=== PATIENT | male | born 1955 | race Caucasian/White ===

== ENCOUNTER 2021-08-28 09:55 | Outpatient (CLI) | payer MEDICARE, SELFPAY ==
--- NOTE | ~2021-08-28 | US_ITS ---
EXAMINATION: US aorta [facility] DATE: 08/28/2021 10:30 INDICATION: Abdominal aortic aneurysm screening with risk factors of hypercholesterolemia and prior s moking. TECHNIQUE: Grayscale, color Doppler, and pulsed Doppler images of the aorta and common iliac arteries were obtained. COMPARISON: None. FINDINGS: The proximal aorta measures 2.0 cm. The mid aorta measures 2.1 cm. The distal aorta measures 1.9 cm. Biphasic, potentially triphasic waveforms with brisk systolic upstrokes in the aorta on color Doppler . No evident atherosclerotic plaque. The right common iliac artery measures 1.1 cm. The left common i liac artery measures 1.0 cm. IMPRESSION: 1. Normal abdominal aorta. Reviewed, dictated and finalized at location B. IMPRESSION: 1. Normal abdominal aorta.
== END 2021-08-28 09:56 | disposition home or self-care (01) ==
PROVIDERS: PCP Family Medicine; Visit Provider Nurse Practitioner Family
DX: Z13.6 Encounter for screening for cardiovascular disorders (principal)
CPT/HCPCS: 76706

== ENCOUNTER 2021-10-03 00:02 | Day surgery (SDC) | payer MEDICARE, SELFPAY ==
[2021-09-14 14:58] VITALS: BMI 24.4
[2021-10-03 06:50] VITALS: BP 133/89; PULSE 75; RESP 20; TEMP 36.2; O2SAT 99
[2021-10-03] MEDS: LACTATED RINGERS 1,000 ML 150 ML IV CONT (07:18)
--- NOTE | 2021-10-03 07:41 | WPDANESEPPF ---
Anes - Initial Pre Proc Eval Procedure: Operation Date: 10/03/21 08:15 Proposed Procedures p Screening Colonoscopy - José Manuel Matson MD Date/Time: 10/03/21 07:41 Surgeon: José Manuel Matson MD Pre Op Diagnosis: hx of colon polyps Patient Data Age: 66 Gender: M Height: 1.8 m Weight: 77.5 kg Last Vital Signs Temp 97.2 F L 10/03/21 06:50 Pulse 75 10/03/21 06:50 Resp 20 10/03/21 06:50 BP 133/89 10/03/21 06:50 Pulse Ox 99 10/03/21 06:50 Allergies Allergy/AdvReac Type Severity Reaction Status Date / Time No Known Allergies Allergy Verified 10/03/21 06:49 Home Medications Medication Instructions Recorded Confirmed Type sildenafil 100 mg tablet 100 mg PO DAILY PRN #10 tablet 03/27/21 09/14/21 Rx finasteride 5 mg tablet 5 mg PO DAILY #90 tablet 08/30/21 09/14/21 Rx rosuvastatin 10 mg tablet 10 mg PO DAILY #90 tablet 09/09/21 09/14/21 Rx Patient hx anesthesia problems: none Family hx anesthesia problems: none Results Review: All pre-operative results and documents have been reviewed as part of the pre-operative evaluation. [facility] Past Medical History Medical History (Updated 08/14/21 @ 21:27 by Verónica Cat NP) BPH (benign prostatic hyperplasia) COVID-19 Dermatitis Erectile dysfunction Hemorrhoids Mixed hyperlipidemia Verruca(e) Surgical History Surgical History H/O left inguinal hernia repair Repair of left indirect inguinal hernia with mesh - 09/17/2008 H/O right inguinal hernia repair Repair of right indirect inguinal hernia with mesh - 04/13/2015 H/O umbilical hernia repair without mesh - 08/27/2000 History of colonoscopy History of incisional hernia repair Repair of ventral/incisional hernia with 6.4x6.4 circular straps and Proceed mesh - 07/25/2011 S/P repair of recurrent ventral hernia Repair of recurrent ventral/incisional hernia with mesh utilizing bilateral component separation with 10cm x 15cm Proceed mesh - 01/12/2015 Family History Family History Mother Hypertension Sibling Family history of malignant neoplasm of bone Ruptured abdominal aortic aneurysm (AAA) Father Family history of coronary artery disease Social History Social History Years smoked: 3 Smoking status: Former smoker Tobacco type: cigarettes Additional smoking assessment comments: Smoked 40 years ago Alcohol intake: current Drinks per week: 8 Substance use: never Substance use type: does not use Living arrangements: alone Spiritual care concerns: No Anes - Eval Final PreProcedure Day of Procedure 10/03/21 07:41 Patient weight: normal Heart: regular rate and rhythm Lungs: clear to auscultation Airway: Mallampati scale class II Neurological: alert and oriented Last oral intake: >/= 8 hours ASA classification: II Emergent: no Anesthetic plan: proceed Anesthesia type and monitoring: general GIVS and standard monitoring Results Review: All pre-operative results and documents have been reviewed as part of the pre-operative evaluation. Informed Consent: The patient's anesthetic plan and its attendant risks and benefits were discussed with the patient/family/POA. Questions were solicited and answers provided to the satisfaction of the patient/family/POA.
--- NOTE | 2021-10-03 08:02 | PM.HPGS ---
History of Present Illness History of Present Illness Consent: Risks, benefits, and alternatives have been discussed and questions answered. Patient agrees to proceed with procedure. Chief complaint: hx of colon polyps Narrative: Will Jay is a 66 year old male with colon polyp in 2019 Review of Systems Constitutional: Constitutional: Denies headache(s) and Denies weakness Eyes: Eyes: Denies blurry vision ENT: Reports Normal hearing present, Denies headache(s) and Denies neck pain Cardiovascular: Cardiovascular: Denies chest pain and Denies dyspnea Respiratory: Respiratory: Denies dyspnea Gastrointestinal: Gastrointestinal: Reports no additional gastrointestinal complaints Genitourinary: Genitourinary: Denies dysuria Musculoskeletal: Musculoskeletal: Denies neck pain Integumentary/Breasts: Skin/Breast: Denies dry skin Neurologic: Reports Normal hearing present, Denies headache(s) and Denies weakness Psychiatric: Psychiatric: Denies anxiety Endocrine: Endocrine: Denies change in body appearance Hematologic/Lymphatic: Hematologic/Lymphatic: Denies easy bleeding Allergic/Immunologic: Allergic/Immunologic: Denies urticaria PMFSH Past Medical History Medical History (Updated 08/14/21 @ 21:27 by Verónica Cat NP) BPH (benign prostatic hyperplasia) COVID-19 Dermatitis Erectile dysfunction Hemorrhoids Mixed hyperlipidemia Verruca(e) Surgical History Surgical History H/O left inguinal hernia repair Repair of left indirect inguinal hernia with mesh - 09/17/2008 H/O right inguinal hernia repair Repair of right indirect inguinal hernia with mesh - 04/13/2015 H/O umbilical hernia repair without mesh - 08/27/2000 History of colonoscopy History of incisional hernia repair Repair of ventral/incisional hernia with 6.4x6.4 circular straps and Proceed mesh - 07/25/2011 S/P repair of recurrent ventral hernia Repair of recurrent ventral/incisional hernia with mesh utilizing bilateral component separation with 10cm x 15cm Proceed mesh - 01/12/2015 Family History Family History Mother Hypertension Sibling Family history of malignant neoplasm of bone Ruptured abdominal aortic aneurysm (AAA) Father Family history of coronary artery disease Social History Social History Years smoked: 3 Smoking status: Former smoker Tobacco type: cigarettes Additional smoking assessment comments: Smoked 40 years ago Alcohol intake: current Drinks per week: 8 Substance use: never Substance use type: does not use Living arrangements: alone Spiritual care concerns: No Meds Home Medications and Allergies Home Medications Medication Instructions Recorded Confirmed Type sildenafil 100 mg tablet 100 mg PO DAILY PRN #10 tablet 03/27/21 09/14/21 Rx finasteride 5 mg tablet 5 mg PO DAILY #90 tablet 08/30/21 09/14/21 Rx rosuvastatin 10 mg tablet 10 mg PO DAILY #90 tablet 09/09/21 09/14/21 Rx Allergies Allergy/AdvReac Type Severity Reaction Status Date / Time No Known Allergies Allergy Verified 10/03/21 06:49 Vital Signs Vital Signs - 24 hr 10/03/21 06:50 Temperature 97.2 F L Pulse Rate 75 Respiratory Rate 20 Blood Pressure 133/89 Pulse Oximetry 99 Exam Const: General: comfortable and no acute distress HENMT: General nose exam: Normal nares present Eyes: General: appearance normal, both eyes and all related structures Neck: Neck: no JVD Resp: Auscultation: clear to auscultation bilaterally Cardio: Rate: regular rate Rhythm: regular rhythm GI: Inspection: non-distended GI Palp: Yes Soft to palpation Skin: General skin exam: normal color Neuro: General: gait normal Speech: normal speech Extrem: General: normal to inspection Psych: Mental Status: mental status grossly normal Assessm
[2021-10-03 08:20] VITALS: BP 99/67; PULSE 64; RESP 13; O2SAT 98
[2021-10-03 08:30] VITALS: BP 126/81; PULSE 60; RESP 14; O2SAT 98
[2021-10-03 08:41] VITALS: BP 126/86; PULSE 60; RESP 17; O2SAT 100
== END 2021-10-03 08:54 | disposition home or self-care (01) ==
PROVIDERS: PCP Family Medicine; Visit Provider Internal Medicine Gastroenterology
PROC: 0DJD8ZZ Inspection of Lower Intestinal Tract, Via Natural or Artificial Opening Endoscopic (ICD-10-PCS; CPT 45378; principal; 2021-10-03 08:15)
DX: Z12.11 Encounter for screening for malignant neoplasm of colon (principal); K63.5 Polyp of colon; K64.8 Other hemorrhoids; K57.30 Diverticulosis of large intestine without perforation or abscess without bleeding; N40.0 Benign prostatic hyperplasia without lower urinary tract symptoms; L30.9 Dermatitis, unspecified; E78.2 Mixed hyperlipidemia; Z86.16 Personal history of COVID-19; Z87.891 Personal history of nicotine dependence
CPT/HCPCS: 45385; 88305; J2001; J2704; J7120

== ENCOUNTER 2024-09-08 15:53 | Outpatient (CLI) | payer MEDICARE, SELFPAY ==
--- NOTE | ~2024-09-08 | CT_ITS ---
Non-contrast CT scan of the Abdomen and Pelvis Clinical indication: Incisional hernia Technique: 2.5 mm axial scans were obtained through the abdomen and pelvis without intravenous or or al contrast. Dose reduction technique was used on this scan by utilizing automated exposure control a nd iterative reconstruction technique. The dose-length product (DLP) was 263.79 mGy-cm. Findings: Images through the lung bases reveal no abnormalities. There is no evidence of renal or ureteral calculi. The kidneys and the ureters are nondilated. The liver, spleen, pancreas, gallbladder, and adrenals appear normal. There is no aortic aneurysm. T here is elevation of the left hemidiaphragm. There is no evidence of bowel obstruction. Moderate ventral fat-containing hernia present, neck left of midline (axial image 101). Images through the pelvis were performed. There is no evidence of ascites or lymphadenopathy. Urinary bladder unremarkable. Prostate gland enlarged. Impression: Moderate ventral fat-containing hernia with neck left of midline, as detailed above. Enlarged prostate gland. Elevated left hemidiaphragm. Reviewed, dictated and finalized at location . Impression: Moderate ventral fat-containing hernia with neck left of midline, as detailed a nereyda. Enlarged prostate gland. Elevated left hemidiaphragm.
--- OUTSIDE RECORDS SUMMARY | 2024-09-08 16:46 | XMS_ITS | Clinical Summary ---
Author Organization [facility] Address [address] [place] [address] Care Team Providers Care Analysis Lead Name Role Phone Syd Wright MD Primary Care Provider [phone] Allergies No known active allergies Medications No known medications Active Problems Problem Noted Date Diagnosed Date Leukopenia 07/19/2017 Family History Medical History Relation Name Comments Cancer Brother 1 Diabetes Brother 2 Heart Disease Brother 2 Diabetes Brother 3 Heart Disease Brother 3 Diabetes Brother 4 Heart Disease Brother 4 Heart Disease Father Diabetes Mother No Known Problems Sister 1 Diabetes Sister 2 Diabetes Sister 3 No Known Problems Sister 4 Diabetes Sister 5 Diabetes Sister 6 Relation Name Status Comments Brother 1 Brother 2 Alive Brother 3 Alive Brother 4 Alive Father Mother Sister 1 Alive Sister 2 Alive Sister 3 Alive Sister 4 Alive Sister 5 Alive Sister 6 Alive Social History Tobacco Use Types Packs/Day Years Used Date Smoking Tobacco: Former Cigarettes 0.3 4 1 979 - 1983 Alcohol Use Standard Drinks/Week Comments Yes 0 (1 standard drink = 0.6 oz pur e alcohol) occasional Sex and Gender Information Value Date Recorded Sex Assigned at Not on file Legal Sex Male 9:40 AM CLIENT SERVICE COORDINATOR Gender Identity Not on file Sexual Orientation Not on file Last Filed Vital Signs Vital Sign Reading Time Taken Comments Blood Pressure 160/96 07/26/2017 9:24 AM CLIENT SERVICE COORDINATOR Pulse 92 07/26/2017 9:24 AM CLIENT SERVICE COORDINATOR Temperature 36.8 C (98.2 F) 07/26/2017 9:24 AM CLIENT SERVICE COORDINATOR Respiratory Rate 16 07/26/2017 9:24 AM CLIENT SERVICE COORDINATOR Oxygen Saturation 96% 07/26/2017 9:24 AM CLIENT SERVICE COORDINATOR Inhaled Oxygen Concentration - - Weight 77.6 kg (171 lb) 07/26/2017 9:24 AM CLIENT SERVICE COORDINATOR Height 180.3 cm (5' 11 ) 07/26/2017 9:24 AM CLIENT SERVICE COORDINATOR Body Mass Index 23.85 07/26/2017 9:24 AM CLIENT SERVICE COORDINATOR Plan of Treatment Health Maintenance Due Date Last Done Comments DTAP/TDAP/TD VACCINES (1 - Tdap) 1973 COLORECTAL SCREENING 1999 Colorectal Cancer Screening 1999 FIT-DNA Q 3 years 1999 FIT/FOBT Q 1 year 1999 Flex Sig/CT Colonography Q 5 years 1999 PNEUMOCOCCAL VACCINE 50+ YEARS (1 of 1 - PCV) 07/05/19 05 ZOSTER VACCINE (1 of 2) 2004 INFLUENZA VACCINE (#1) 2023 RSV VACCINE (60+ or ) (1 - 1-dose 75+ series) 2029 Insurance [employer] O OPEN ACCESS Care Teams Analysis Lead Relationship Specialty Start Date End Date Syd Wright MD [address] [place] [id number] PCP - General Family Practice 07/09/17
== END 2024-09-08 15:54 | disposition home or self-care (01) ==
PROVIDERS: PCP Family Medicine; Visit Provider Surgery
DX: K43.2 Incisional hernia without obstruction or gangrene (principal); K43.9 Ventral hernia without obstruction or gangrene; N40.0 Benign prostatic hyperplasia without lower urinary tract symptoms; Q79.1 Other congenital malformations of diaphragm
CPT/HCPCS: 74176

== ENCOUNTER 2024-11-30 11:43 | Emergency (ER) | payer MEDICARE, SELFPAY ==
--- OUTSIDE RECORDS SUMMARY | 2024-11-30 11:46 | XMS_ITS | Clinical Summary ---
Author Organization [facility] Address [address] [place] [address] Care Team Providers Care Beer Brewer Name Role Phone Syd Wright MD Primary Care Provider [phone] Allergies No known active allergies Medications No [...] on file Legal Sex Male 9:40 AM SEW OUT OPERATOR Gender Identity Not on file Sexual Orientation Not on file Last Filed Vital Signs Vital Sign Reading Time Taken Comments Blood Pressure 160/96 07/26/2017 9:24 AM SEW OUT OPERATOR Pulse 92 07/26/2017 9:24 AM SEW OUT OPERATOR Temperature 36.8 C (98.2 F) 07/26/2017 9:24 AM SEW OUT OPERATOR Respiratory Rate 16 07/26/2017 9:24 AM SEW OUT OPERATOR Oxygen Saturation 96% 07/26/2017 9:24 AM SEW OUT OPERATOR Inhaled Oxygen Concentration - - Weight 77.6 kg (171 lb) 07/26/2017 9:24 AM SEW OUT OPERATOR Height 180.3 cm (5' 11) 07/26/2017 9:24 AM SEW OUT OPERATOR Body Mass Index 23.85 07/26/2017 9:24 AM SEW OUT OPERATOR Plan of Treatment Health Maintenance Due Date Last Done Comments DTAP/TDAP/TD VACCINES (1 - Tdap) 1973 COLORECTAL SCREENING 1999 Colorectal Cancer Screening 1999 FIT-DNA Q 3 years 1999 FIT/FOBT Q 1 year 1999 Flex Sig/CT Colonography Q 5 years 1999 PNEUMOCOCCAL VACCINE 50+ YEARS (1 of 1 - PCV) 07/05/19 05 ZOSTER VACCINE (1 of 2) 2004 INFLUENZA VACCINE (#1) 2024 RSV VACCINE (60+ or ) (1 - 1-dose 75+ series) 2029 Insurance [employer] O OPEN ACCESS Care Teams Beer Brewer Relationship Specialty Start Date End Date Syd Wright MD [address] [place] [id number] PCP - General Family Practice 07/09/17
[2024-11-30 11:55] VITALS: BP 142/87; PULSE 83; RESP 16; TEMP 36.7; O2SAT 99
--- NOTE | 2024-11-30 12:07 | ED_ITS ---
HPI - General Adult General Chief complaint: Wound/Laceration Stated complaint: Dog Bite / RT Leg History of Present Illness HPI narrative: Will Jay is a 69 y/o Male who presents today after being bit by a dog about 2 hours ago to his right lower leg. He states that he was riding his bike and was stopped talking to woman who had dog a leash and out of no where the dog came over and bit the bottom of his like. He states police and EMS and animal Control are and monitoring situation as of now not required to get the rabies vaccine he does not remember last tetanus shot was. Related Data Allergies Allergy/AdvReac Type Severity Reaction Status Date / Time Penicillins AdvReac Intermediate Other Verified 11/30/24 12:00 Review of Systems Review of Systems: All systems reviewed & are unremarkable except as noted in HPI and below PMFSH Past Medical History Medical History Osteoarthritis of left index finger Elevated blood pressure reading in office with diagnosis of hypertension Blood in semen Dermatitis Erectile dysfunction Hemorrhoids Verruca(e) COVID-19 BPH (benign prostatic hyperplasia) Mixed hyperlipidemia Surgical History Surgical History History of colonoscopy H/O right inguinal hernia repair Repair of right indirect inguinal hernia with mesh - 04/13/2015 S/P repair of recurrent ventral hernia Repair of recurrent ventral/incisional hernia with mesh utilizing bilateral component separation with 10cm x 15cm Proceed mesh - 01/12/2015 History of incisional hernia repair Repair of ventral/incisional hernia with 6.4x6.4 circular straps and Proceed mesh - 07/25/2011 H/O left inguinal hernia repair Repair of left indirect inguinal hernia with mesh - 09/17/2008 H/O umbilical hernia repair without mesh - 08/27/2000 Family History Family History Mother Hypertension Cancer Diabetes mellitus Sibling Family history of malignant neoplasm of bone Ruptured abdominal aortic aneurysm (AAA) Alzheimers disease Diabetes mellitus Hypertension Father Family history of coronary artery disease Cancer Sibling Alzheimers disease Bone cancer Social History Social History Years smoked: 3 Smoking status: Former smoker Tobacco type: cigarettes Second hand tobacco smoke exposure: No Additional smoking assessment comments: Smoked 40 years ago Alcohol intake: current Drinks per week: 8 Substance use: never Substance use type: does not use Do You Feel Safe in your Home?: Yes Lack of Transportation: No Lack of Food: Never True Current Housing: I Have Housing Concerned About Future Housing: No Difficulty Paying Gas/Electric Bills: No Difficulty Paying for Meds: No Currently Unemployed: No Education: Trade/Vocational Certificate Difficulty w/ Childcare or Family Care: No Living arrangements: alone Occupation/Education: retired 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 Spiritual care concerns: No Exam Narrative: GENERAL: Well-appearing, well-nourished, and in no acute distress. HEAD: Normocephalic, atraumatic. EYES: PERRLA and EOMI. ENT: Nares clear, no rhinorrhea or epistaxis. Mucous membranes moist. NECK: Supple. No adenopathy or masses. No carotid bruits or JVD CHEST: Clear to auscultation. No respiratory distress. No wheezes rales or rhonchi HEART: Regular rate and rhythm. No murmur heard. Normal peripheral pulses. EXTREMITIES: Normal range of motion. right lower leg noted to have abrasion appearing bite with some swelling surrounding no active bleeding noted. SKIN: Warm, dry, no rash. NEURO: No focal deficits. Alert and oriented x3. PSYCH: Normal mood and affect. Course Course Level of Care: Express Care Visit Vital Signs Vital signs: Vital Signs Temperature 36.7 C 11/30/24 11:55 Pulse Rate 83 11/30/24 11:55 Respiratory Rate 16 11/30/24 11:55 Blood Pressure 142/87 H 11/30/24 11:55 Pulse Oximetry 99 11/30/24 11:55 Oxygen Delivery Room Air 11/30/24 11:55 Temperature 36.7 C 11/30/24 11:55 Pulse Rate 83 11/30/24 11:55 Respiratory Rate 16 11/30/24 11:55 Blood Pressure 142/87 H 11/30/24 11:55 Pulse Oximetry 99 11/30/24 11:55 Oxygen Delivery Room Air 11/30/24 11:55 Medical Decision Making MDM Narrative Medical decision making narrative: right lower leg noted to have abrasion appearing bite with some swelling surrounding no active bleeding noted. Area thoroughly cleansed and sterile dressing applied sounds like this dog is a family owned dog low risk for rabies, PD,EMS and animal control involved Plan to update his Tdap, start him on clindamycin prophylactically as he is allergic to penicillins Encouraged wound care Strict return precautions discussed Medical Records Medical records reviewed: Yes I reviewed the external patient's medical records. Vital Signs Vital Signs: Vital Signs Temperature 36.7 C 11/30/24 11:55 Pulse Rate 83 11/30/24 11:55 Respiratory Rate 16 11/30/24 11:55 Blood Pressure 142/87 H 11/30/24 11:55 Pulse Oximetry 99 11/30/24 11:55 Oxygen Delivery Room Air 11/30/24 11:55 Temperature 36.7 C 11/30/24 11:55 Pulse Rate 83 11/30/24 11:55 Respiratory Rate 16 11/30/24 11:55 Blood Pressure 142/87 H 11/30/24 11:55 Pulse Oximetry 99 11/30/24 11:55 Oxygen Delivery Room Air 11/30/24 11:55 Vitals reviewed by me Discharge Plan Discharge Clinical Impression: Dog bite Patient Disposition: Home Condition: Stable Instructions: Antibiotic Form, Animal Bite (ED) Additional Instructions: Continue to keep your wound cleansed daily and covered with a dry dressing Ice extremity to help with swelling Start taking the Clindamycin three times daily for 1 week to help prevent infection It sounds like this is a low risk for the need of rabbies vaccination, however follow up with PD and animal control if this is required or recommended then you will need to go to the ER. IF you also develop any signs of infection such as increased swelling/ drainage/ redness/ pain/ fever then proceed to the ER. Otherwise follow up with your PCP in 1 week to ensure this is improving Patient Language: Moldovan Prescriptions: New clindamycin HCl [Cleocin HCl] 300 mg capsule 300 mg PO TID 7 Days Qty: 21 0RF No Action sildenafil 100 mg tablet 100 mg PO DAILY PRN (Reason: sexual activity) Qty: 30 5RF Rx Instructions: administer 30 minutes to 4 hours before activity rosuvastatin 10 mg tablet See Rx Instructions .ROUTE .COMPLEX Qty: 90 3RF Dose Instruction: TAKE 1 TABLET DAILY Rx Instructions: TAKE 1 TABLET DAILY finasteride 5 mg tablet See Rx Instructions .ROUTE .COMPLEX Qty: 90 3RF Dose Instruction: TAKE 1 TABLET DAILY Rx Instructions: TAKE 1 TABLET DAILY Follow-up/Referrals: Syd Wright MD [Primary Care Provider] - 1 Week Time of Disposition: 12:15
[2024-11-30] MEDS: TETANUS,DIPHTHERIA,AC PERTUSSIS ADULT (0.5 ML) BOOSTRIX IM (12:37)
== END 2024-11-30 12:48 | disposition home or self-care (01) ==
PROVIDERS: Emergency Provider Nurse Practitioner Family; PCP Family Medicine
DX: S80.811A Abrasion, right lower leg, initial encounter (principal); W54.0XXA Bitten by dog, initial encounter; Z23 Encounter for immunization; N40.0 Benign prostatic hyperplasia without lower urinary tract symptoms; E78.2 Mixed hyperlipidemia; M19.042 Primary osteoarthritis, left hand; Z87.891 Personal history of nicotine dependence; Z86.16 Personal history of COVID-19
CPT/HCPCS: 90471; 90715; 99212; G0463